=== PATIENT | male | born 1990 | race Caucasian/White ===

== ENCOUNTER 2017-08-17 09:59 | Emergency (ER) | payer OTHER, MEDICAID ==
[~2017-08-17] VITALS: Ht 172.7 cm; Wt 71.3 kg
[~2017-08-17 09:59] MED LIST: OLAN10TA PO; OLAN20TA1 PO
[2017-08-17 10:05] VITALS: BP 107/59
== END 2017-08-17 11:10 | disposition left against medical advice (07) ==
LOC: MED 09:59
DX: R51 Headache (principal); Z53.21 Procedure and treatment not carried out due to patient leaving prior to being seen by health care provider

== ENCOUNTER 2021-08-17 04:05 | Emergency (ER) | payer OTHER, MEDICAID | END 2021-08-17 04:38 | disposition left against medical advice (07) | LOC: MED 04:05 | DX: R53.1 Weakness (principal); Z53.21 Procedure and treatment not carried out due to patient leaving prior to being seen by health care provider ==

== ENCOUNTER 2022-04-19 10:41 | Emergency (ER) | payer MEDICAID, OTHER ==
[~2022-04-19] VITALS: Ht 170.2 cm; Wt 70.3 kg
--- NOTE | 2022-04-19 10:42 | NUR ---
[facility]
[2022-04-19 10:45] VITALS: BP 115/74
--- NOTE | 2022-04-19 10:55 | NUR ---
Dr. Fernandez at bedside evaluating patient.
--- NOTE | 2022-04-19 11:00 | NUR ---
31 y/o male biba from home patient c/o 8010 wants to kill himself with smoking meth. Per EMS "mom stated he wants to and is using meth." Patient has been a meth user for 2 years and has a history of schizophrenia and does not take his medication. Medical History: Meth user and Schizophrenia NKDA
--- NOTE | 2022-04-19 11:09 | NUR ---
QUIN AZEVEDO and urine specimens collected and walked to lab.
--- NOTE | 2022-04-19 11:10 | NUR ---
Lab at bedside.
[2022-04-19 11:26] LABS: APPEARANCE,URINE CLEAR (CLEAR); BILIRUBIN,URINE NEGATIVE (NEGATIVE); BLOOD, URINE NEGATIVE (NEGATIVE); COLOR,URINE YELLOW (YELLOW); LEUKOCYTE ESTERASE ,URINE NEGATIVE (NEGATIVE); NITRITE, URINE NEGATIVE (NEGATIVE); UGLUCOSE NEGATIVE (NEGATIVE)
[2022-04-19 11:31] LABS: BASOPHILS # (AUTO) 0.1 K/uL (0.00-0.22); BASOPHILS % (AUTO) 0.6 % (0.0-2.0); EOSINOPHILS # (AUTO) 0.1 K/uL (0-0.4); EOSINOPHILS % (AUTO) 1.1 % (0.0-4.0); HEMATOCRIT 43.3 % (36-52); HEMOGLOBIN 14.5 g/dL (12.0-18.0); LYMPHOCYTES # (AUTO) 3.2 K/uL (2.0-11.5); LYMPHOCYTES % (AUTO) 32.6 % (20.5-51.1); MEAN CORPUSCULAR HEMOGLOBIN 30 pg (27-31); MEAN CORPUSCULAR HGB CONC 34 g/dL (33-37); MEAN CORPUSCULAR VOLUME 89.5 fL (80-94); MONOCYTES # (AUTO) 0.8 K/uL (0.8-1.0); MONOCYTES % (AUTO) 8.6 % (1.7-9.3); NEUTROPHILS # (AUTO) 5.7 K/uL (1.8-7.7); NEUTROPHILS % (AUTO) 57.1 % (42.2-75.2); PLATELET COUNT (AUTO) 334 K/uL (140-450); RED BLOOD CELL COUNT(AUTO) 4.84 MIL/uL (4.20-6.10); RED CELL DISTRIBUTION WIDTH 13.3 % (11.6-13.7); WHITE BLOOD COUNT (AUTO) 9.9 K/uL (4.8-10.8)
--- NOTE | 2022-04-19 11:41 | NUR ---
Patient is sitting up in bed, eating lunch.
[2022-04-19 11:42] LABS: ALBUMIN 4.2 g/dL (3.4-5.0); ANION GAP 10.3 (8-16); ASPARTATE AMINOTRANSFERASE 21 U/L (15-37); CARBON DIOXIDE 29.9 mmol/L (21-32); CHLORIDE 108 mmol/L (98-107); CREATININE 0.8 mg/dL (0.6-1.3); GFR ARICAN-AMERICAN 143 mL/min (>90); GLUCOSE 95 mg/dL (74-106); POTASSIUM 4.2 mmol/L (3.5-5.1); SODIUM SERUM 144 mmol/L (136-145); TOTAL BILIRUBIN 0.5 mg/dL (0.0-1.0); UREA NITROGEN, BLOOD 13 mg/dL (7-18)
[2022-04-19 11:53] LABS: SALICYLATE < 2.8 mg/dL (2.8-20.0)
[2022-04-19 11:56] LABS: ACETAMINOPHEN < 0.5 ug/ml (10-30)
[2022-04-19 12:01] LABS: BARBITURATE, URINE NEGATIVE ng/ml (NEG <=200); BENZODIAZEPINE, URINE NEGATIVE ng/mL (NEG <=200); CANNABINOID, URINE NEGATIVE ng/mL (NEG <=50); COCAINE, URINE NEGATIVE ng/mL (NEG <=300); OPIATE, URINE NEGATIVE ng/mL (NEG <=2000); PHENCYCLIDINE SCREEN,URINE NEGATIVE ng/mL (NEG <=25)
--- NOTE | 2022-04-19 14:56 | NUR ---
Patient to be transferred to [facility]. Is being transferred due to HIGHER LEVEL OF CARE. Receiving facility has accepting physician and available space. ER physician has signed transfer form. Patient or responsible republican has agreed to transfer and signed form. Patient belongings inventoried and will be sent with patient. Copy of nursing notes, lab reports, EKG, Physicians Orders and X-rays to be sent with patient. Report called to TOMEKA at receiving facility. [facility] ambulance service has been called for transfer.
--- NOTE | 2022-04-19 14:56 | NUR ---
spoke with triston from [facility]. pt has been accepted under Dr. Ayala
--- NOTE | 2022-04-19 15:15 | NUR ---
Patient is having a telepsych visit with Dr. Juarez
[2022-04-19] MEDS ORDERED: OLANZapine 5 MG ODT PO ONE ×2 (15:25→15:30)
--- NOTE | 2022-04-19 15:26 | NUR ---
Received orders from Dr. Saleh, psychiatrist, to continue 5150, start dose of Zyprexa 10 mg dose now and to continue daily starting tomorrow. Dr. Riley was made aware of new orders.
--- NOTE | 2022-04-19 16:20 | NUR ---
[facility] at bedside for transfer to [facility].
[2022-04-19 16:30] VITALS: BP 103/46
--- NOTE | 2022-04-19 18:07 | NUR ---
Chart checked and completed. The patient's care was reviewed and supervised by Lauren Knapp RN.
== END 2022-04-19 16:20 ==
LOC: MED 10:41
DX: R45.851 Suicidal ideations (principal); Z20.822 Contact with and (suspected) exposure to COVID-19; F15.10 Other stimulant abuse, uncomplicated; R45.1 Restlessness and agitation; F20.9 Schizophrenia, unspecified; F17.210 Nicotine dependence, cigarettes, uncomplicated; Z79.899 Other long term (current) drug therapy
CPT/HCPCS: 36415; 80053; 80305; 81003; 85025; 87426; 87635; 99285; C9803; G0480; G0482

== ENCOUNTER 2022-05-13 02:13 | Emergency (ER) | payer OTHER ==
[~2022-05-13] VITALS: Ht 170.2 cm; Wt 68.0 kg
[2022-05-13 02:15] VITALS: BP 134/76
--- NOTE | 2022-05-13 02:18 | NUR ---
TO LOBBY A/W BED AMBULATORY
--- NOTE | 2022-05-13 02:35 | NUR ---
ER MD AT BEDSIDE EXAMINING PT
--- NOTE | 2022-05-13 02:35 | NUR ---
31 Y/O MALE BIBS FROM HOME, C/O "BONE PAIN (09/04) FOR THE PAST 20 YEARS." PT STAES THE PAIN RADIATES TO HIS NEAD, NECK, AND SHOULDERS. NO APARENT TRAUMA, DEFORMITIES, OR BRUISING. A/OX4,GCS-15; AMBULATORY WITHOUT ASSISTANCE; UNLABORED BREATHING AND SPEAKING IN FULL SENTENCES. PT HAS FULL RANGE OF MOTION, CMS INTACT. PT SEATED IN BED WITH HOB RAISED, BED IN LOWEST SETTING AND RAILS UP X2. HX: SCHIZOPHRENIA NKA MED: OLANZAPINE
[2022-05-13] MEDS ORDERED: LORazepam 1 MG TAB PO ONE (02:40)
[2022-05-13 03:59] VITALS: BP 133/80
--- NOTE | 2022-05-13 04:00 | NUR ---
Patient discharged with v/s stable. Written and verbal after care instructions given and explained. Patient verbalized understanding. Ambulatory with steady gait. All questions addressed prior to discharge. Advised to follow up with PMD. VSS, A/OX4, UNLABORED BREATHING, AMBULATORY, AND CALM DEMEANOR.
== END 2022-05-13 03:55 | disposition home or self-care (01) ==
LOC: MED 02:13
DX: R51.9 Headache, unspecified (principal); F41.9 Anxiety disorder, unspecified; F20.9 Schizophrenia, unspecified; Z79.899 Other long term (current) drug therapy
CPT/HCPCS: 99283

== ENCOUNTER 2022-07-30 23:55 | Emergency (ER) | payer OTHER ==
--- NOTE | 2022-07-31 00:46 | NUR ---
CALLED TO TRIAGE, NO ANSWER
--- NOTE | 2022-07-31 01:08 | NUR ---
CALLED TO TRIAGE, NO ANSWER. LWBS
== END 2022-07-31 00:46 | disposition left against medical advice (07) ==
LOC: MED 23:55
DX: F29 Unspecified psychosis not due to a substance or known physiological condition (principal); Z53.21 Procedure and treatment not carried out due to patient leaving prior to being seen by health care provider

== ENCOUNTER 2022-08-12 01:12 | Emergency (ER) | payer OTHER ==
--- NOTE | 2022-08-12 02:10 | NUR ---
PATIENT LEFT WITHOUT BEING SEEN BY DR. Starr. NO FURTHER CARE PROVIDED FOR PATIENT.
--- NOTE | 2022-08-12 02:11 | NUR ---
NOTIFIED BY ER REGISTRATION THAT PT MILKA
== END 2022-08-12 02:10 | disposition left against medical advice (07) ==
LOC: MED 01:12
DX: M79.10 Myalgia, unspecified site (principal); Z53.21 Procedure and treatment not carried out due to patient leaving prior to being seen by health care provider

== ENCOUNTER 2023-12-05 22:42 | Emergency (ER) | payer OTHER ==
[~2023-12-05] VITALS: Ht 170.2 cm; Wt 74.8 kg
[2023-12-05 22:45] VITALS: BP 123/73; PULSE 107; RESP 16; TEMP 98.4; O2SAT 97
[2023-12-06] MEDS ORDERED: IBUPROFEN 600 MG TAB PO ONE (01:05)
[2023-12-06 01:26] LABS: BASOPHILS # (AUTO) 0.1 K/uL (0.00-0.22); BASOPHILS % (AUTO) 0.6 % (0.0-2.0); EOSINOPHILS # (AUTO) 0.1 K/uL (0-0.4); EOSINOPHILS % (AUTO) 1.4 % (0.0-4.0); HEMATOCRIT 44.1 % (36-52); HEMOGLOBIN 15.1 g/dL (12.0-18.0); LYMPHOCYTES # (AUTO) 2.7 K/uL (2.0-11.5); LYMPHOCYTES % (AUTO) 26.8 % (20.5-51.1); MEAN CORPUSCULAR HEMOGLOBIN 31 pg (27-31); MEAN CORPUSCULAR HGB CONC 34 g/dL (33-37); MEAN CORPUSCULAR VOLUME 90.2 fL (80-94); MONOCYTES # (AUTO) 0.7 K/uL (0.8-1.0); MONOCYTES % (AUTO) 6.9 % (1.7-9.3); NEUTROPHILS # (AUTO) 6.4 K/uL (1.8-7.7); NEUTROPHILS % (AUTO) 64.3 % (42.2-75.2); PLATELET COUNT (AUTO) 295 K/uL (140-450); RED BLOOD CELL COUNT(AUTO) 4.89 MIL/uL (4.20-6.10); RED CELL DISTRIBUTION WIDTH 13.4 % (11.6-13.7); WHITE BLOOD COUNT (AUTO) 9.9 K/uL (4.8-10.8)
[2023-12-06 01:50] LABS: ALANINE AMINOTRANSFERASE 28 U/L (12-78); ALBUMIN 3.8 g/dL (3.4-5.0); ALCOHOL, BLOOD < 3 mg/dL (<10); ALKALINE PHOSPHATASE 80 U/L (50-136); ANION GAP 9.3 (8-16); ASPARTATE AMINOTRANSFERASE 13 U/L (15-37); CALCIUM 8.5 mg/dL (8.5-10.1); CARBON DIOXIDE 32.4 mmol/L (21-32); CHLORIDE 101 mmol/L (98-107); CREATINE KINASE, TOTAL 45 U/L (39-308); CREATININE 0.9 mg/dL (0.6-1.3); GFR ARICAN-AMERICAN 123 mL/min (>90); GFR NON ARICAN-AMERICAN 102 mL/min (>90); GLUCOSE 105 mg/dL (74-106); MAGNESIUM 1.9 mg/dL (1.8-2.4); POTASSIUM 3.7 mmol/L (3.5-5.1); SODIUM SERUM 139 mmol/L (136-145); TOTAL BILIRUBIN 0.2 mg/dL (0.0-1.0); TOTAL PROTEIN, SERUM 7.8 g/dL (6.4-8.2); UREA NITROGEN, BLOOD 9 mg/dL (7-18)
[2023-12-06 01:55] LABS: SALICYLATE < 2.8 mg/dL (2.8-20.0)
[2023-12-06 02:10] LABS: AMPHETAMINE, URINE POSITIVE ng/ml (NEG <=1000); BARBITURATE, URINE NEGATIVE ng/ml (NEG <=200); BENZODIAZEPINE, URINE NEGATIVE ng/mL (NEG <=200); CANNABINOID, URINE NEGATIVE ng/mL (NEG <=50); COCAINE, URINE NEGATIVE ng/mL (NEG <=300); OPIATE, URINE NEGATIVE ng/mL (NEG <=2000); PHENCYCLIDINE SCREEN,URINE NEGATIVE ng/mL (NEG <=25)
[2023-12-06 02:50] VITALS: BP 123/73; PULSE 107; RESP 16; TEMP 98.4; O2SAT 97
[2023-12-06 03:05] LABS: ACETAMINOPHEN < 0.5 ug/ml (10-30)
== END 2023-12-06 02:50 | disposition home or self-care (01) ==
LOC: MED 22:42
DX: F15.90 Other stimulant use, unspecified, uncomplicated (principal); M79.18 Myalgia, other site; Z79.899 Other long term (current) drug therapy
CPT/HCPCS: 36415; 80053; 80305; 82550; 83735; 84100; 84443; 85025; 99283; G0480; G0482

== ENCOUNTER 2024-02-11 18:08 | Emergency (ER) | payer OTHER ==
[~2024-02-11] VITALS: Ht 170.2 cm; Wt 59.0 kg
[2024-02-11 18:23] VITALS: BP 115/71; PULSE 87; RESP 18; TEMP 98.2; O2SAT 97
== END 2024-02-11 19:50 | disposition left against medical advice (07) ==
LOC: MED 18:08
DX: M79.18 Myalgia, other site (principal); Z53.21 Procedure and treatment not carried out due to patient leaving prior to being seen by health care provider
CPT/HCPCS: 99281